=== PATIENT | male | born 1990 | race Caucasian/White ===

== ENCOUNTER 2020-11-06 18:42 | Emergency (ER) | payer SELFPAY ==
[~2020-11-06 18:42] MED LIST: AMOXICILLIN875 MG PO; AUGMENTIN 875-1 EACH PO; IBUPROFEN800 MG PO; NAPROSYN375 MG PO; NORCO 5-325 TA1 EACH PO
[2020-11-06] MEDS ORDERED: NAPROXEN500 MG PO (19:52)
[2020-11-06] MEDS ORDERED: AMOXICILLIN500 MG PO (19:52)
== END 2020-11-06 21:00 | disposition home or self-care (01) ==
LOC: FER 18:42
DX: K02.9 Dental caries, unspecified (principal); F17.210 Nicotine dependence, cigarettes, uncomplicated; Z23 Encounter for immunization
CPT/HCPCS: 90471; 90715; 99282; J1885; Q0163

== ENCOUNTER 2020-11-17 04:04 | Emergency (ER) | payer OTHER ==
[~2020-11-17 04:04] MED LIST changes: +AMOXICILLIN500 MG PO; +NAPROXEN500 MG PO
[2020-11-17 04:31] LABS: BASOPHIL 0.3 % (0-2); HCT 32.2 % (42.0-52.0); LYMPHOCYTE 34.8 % (15-48); MCH 31.5 pg (25.0-31.0); MCHC 34.2 g/dL (32.0-36.0); MCV 92.3 fL (78.0-100.0); MONOCYTE 6.4 % (0-12); MPV 10.1 fL (6.0-9.5); NEUTROPHIL 57.3 % (41-80); NRBC 0; PLT 249 K/uL (150-400); RBC 3.49 M/uL (4.70-6.00); RDW 13.2 % (11.5-14.0); WBC 9.6 K/uL (4.0-10.5)
[2020-11-17 04:44] LABS: CREATININE 0.89 mg/dL (0.67-1.17); POTASSIUM 3.4 mmol/L (3.5-5.1)
[2020-11-17 04:45] LABS: ALBUMIN 3.8 g/dL (3.4-5.0); BILIRUBIN - TOTAL 0.2 mg/dL (0.2-1.0); GLOBULIN (CALCULATION) 3.1 g/dL; TOTAL PROTEIN 6.9 g/dL (6.4-8.2)
== END 2020-11-17 07:50 | disposition home or self-care (01) ==
LOC: FER 04:04
PROVIDERS: Emergency Medicine Emergency Medical Services
DX: R07.89 Other chest pain (principal); F17.210 Nicotine dependence, cigarettes, uncomplicated
CPT/HCPCS: 36415; 71045; 80053; 83690; 84484; 85025; 85379; 93005; J7120